=== PATIENT | female | born 1955 | race African-American/Black ===

== ENCOUNTER 2019-12-23 06:54 | Outpatient (CLI) | payer OTHER, SELFPAY ==
[2019-12-24 13:01] LABS: SARS-CoV-2 MS2 Positive; SARS-CoV-2 N Gene Negative; SARS-CoV-2 S Gene Negative; SARS-CoV-2 by NAA Not Detected (NotDetected); SARS-CoV-2 orf1ab Negative
== END 2019-12-23 06:55 | disposition home or self-care (01) ==
LOC: LABBT 06:54
PROVIDERS: ATTEND Ophthalmology Retina Specialist
DX: H35.342 Macular cyst, hole, or pseudohole, left eye (principal); Z20.828 Contact with and (suspected) exposure to other viral communicable diseases
CPT/HCPCS: 87635; U0003

== ENCOUNTER 2019-12-26 08:36 | Day surgery (SDC) | payer BC ==
[2019-12-25 10:21] VITALS: BMI 37.3
[~2019-12-26 08:36] MED LIST: Fentanyl 100 MCG/2 ML VIAL ONE; Fluorouracil 100 MG, Enoxaparin Sodium 25 MG, EPINEPHrine 0.3 MG in Ophthalmic Irrigati... IRR SCH; Midazolam HCl 2 mg/2 ml Vial ONE; PROPOFOL 20 ML ONE
[2019-12-26] MEDS ORDERED: Phenylephrine 2.5% Ophth Soln 5 ML BOT ONE (09:05)
[2019-12-26] MEDS ORDERED: Cyclopentolate 1% Opth Drop 2 ML BOT ONE (09:05)
[2019-12-26] MEDS ORDERED: CEFAZOLIN 1 GM VIAL ONE (10:35)
[2019-12-26] MEDS ORDERED: Indocyanine Green 25 MG/10 ML VIAL ONE (10:35)
[2019-12-26] MEDS ORDERED: Lidocaine 4% PF 5 ML AMP ONE (10:35)
[2019-12-26] MEDS ORDERED: Bupivacaine PF 0.75% SDV 10 ML ONE (10:35)
[2019-12-26] MEDS ORDERED: Triamcinolone 40 MG/ML VIAL ONE (10:35)
[2019-12-26] MEDS ORDERED: Maxitrol 0.1% Opth Oint 3.5 GM TUBE ONE (10:35)
[2019-12-26] MEDS ORDERED: Lidocaine 1% PF 5 ML VIAL ONE (10:35)
--- NOTE | 2019-12-27 14:22 | OP ---
DATE OF PROCEDURE: 12/26/2019 PREOPERATIVE DIAGNOSIS: Macular hole, left eye. POSTOPERATIVE DIAGNOSIS: Macular hole, left eye. PROCEDURE PERFORMED: Pars plana vitrectomy, internal limiting membrane peel, left eye. ANESTHESIA: Local with monitored anesthesia care. COMPLICATIONS: None. PROCEDURE IN DETAIL: The patient was identified in the preoperative holding area. Appropriate informed consent for the planned surgical procedure on the left eye had been obtained. The patient was transported to the operative suite. Appropriate cardiopulmonary monitoring was established. Local anesthesia was obtained using retrobulbar modified Van Lint lid block using 50:50 mixture of 4% lidocaine and 0.75% bupivacaine. The patient was prepped and draped in usual sterile manner for ophthalmic surgery on the left eye. Lid speculum was placed in the left eye. A 27-gauge trocar was placed in the conjunctiva and sclera superotemporally, inferotemporally, and supranasally. Infusion line was placed inferotemporally. Light pipe, vitreous cutter inserted into the eye. Core vitrectomy was performed. Macular hole was identified and the internal limiting membrane was elevated along the inferotemporal arcade using a membrane scraper. This was peeled across the macula using end gripping forceps. Indirect ophthalmoscopy was used to examine the retina 360 degrees. No holes, breaks, or tears were identified. Prophylactic laser was placed behind the sclerotomy sites. Retrobulbar Kenalog and subconjunctival Ancef were placed. Antibiotic ointment was placed and the eye was patched and shielded. The patient was advised to avoid flat and back position, taken to postop recovery unit in good condition, requested to return to clinic in the morning. Job ID: [id number]
== END 2019-12-26 12:05 | disposition home or self-care (01) ==
LOC: SDC 08:36
PROVIDERS: ATTEND Ophthalmology Retina Specialist
DX: H35.342 Macular cyst, hole, or pseudohole, left eye (principal); Z79.82 Long term (current) use of aspirin; Z79.899 Other long term (current) drug therapy; Z91.013 Allergy to seafood; Z91.041 Radiographic dye allergy status
CPT/HCPCS: 67025; J0171; J0690; J1650; J2001; J2250; J2704; J3010; J3301; J3490; J9190